=== PATIENT | female | born 1975 | race Caucasian/White ===

== ENCOUNTER 2016-07-30 16:04 | Emergency (ER) | payer OTHER | END 2016-07-30 17:08 | disposition home or self-care (01) | LOC: FER 16:04 | DX: J10.1 Influenza due to other identified influenza virus with other respiratory manifestations (principal); Z88.0 Allergy status to penicillin | CPT/HCPCS: 87804; 87899; 99283 ==

== ENCOUNTER 2022-02-04 17:32 | Emergency (ER) | payer OTHER ==
[2022-02-04] MEDS ORDERED: VIBRAMYCIN100 MG PO (19:45)
[2022-02-04] MEDS ORDERED: KEFLEX250 MG PO (19:45)
[2022-02-04] MEDS ORDERED: DIFLUCAN150 MG PO (19:45)
[2022-02-04 20:31] LABS: BASOPHIL 0.3 % (0-2); EOSINOPHIL 0.6 % (0-5); HCT 37.9 % (37.0-47.0); HGB 12.2 g/dl (12.5-16.0); LYMPHOCYTE 15.7 % (15-48); MCH 27.9 pg (25.0-31.0); MCHC 32.2 g/dL (32.0-36.0); MCV 86.7 fL (78.0-100.0); MONOCYTE 5.1 % (0-12); MPV 9.9 fL (6.0-9.5); NEUTROPHIL 77.9 % (41-80); NRBC 0; PLT 313 K/uL (150-400); RBC 4.37 M/uL (4.20-5.40); RDW 14.5 % (11.5-14.0); WBC 16.8 K/uL (4.0-10.5)
[2022-02-04 21:20] LABS: ALBUMIN 3.7 g/dL (3.4-5.0); ALKALINE PHOSHATASE 43 U/L (46-116); ALT 16 U/L (14-59); AST 11 U/L (15-37); BILIRUBIN - TOTAL 0.4 mg/dL (0.2-1.0); BUN 16 mg/dL (7-18); BUN/CREAT RATIO (CALC) 21.1 RATIO; CHLORIDE 101 mmol/L (98-107); CO2 (BICARBONATE) 27 mmol/L (21-32); CREATININE 0.76 mg/dL (0.51-0.95); GLOBULIN (CALCULATION) 4.5 g/dL; GLUCOSE 119 mg/dL (74-106); POTASSIUM 4.1 mmol/L (3.5-5.1); TOTAL PROTEIN 8.2 g/dL (6.4-8.2)
[2022-02-04 21:26] LABS: C-REACTIVE PROTEIN > 18.00 mg/dL (<=0.90)
== END 2022-02-04 23:07 | disposition home or self-care (01) ==
LOC: FER 17:32
PROVIDERS: Emergency Medicine
DX: E11.621 Type 2 diabetes mellitus with foot ulcer (principal); L97.419 Non-pressure chronic ulcer of right heel and midfoot with unspecified severity; F17.200 Nicotine dependence, unspecified, uncomplicated; Z88.2 Allergy status to sulfonamides; Z88.1 Allergy status to other antibiotic agents; Z88.5 Allergy status to narcotic agent; Z88.8 Allergy status to other drugs, medicaments and biological substances
CPT/HCPCS: 36415; 73630; 80053; 84484; 85025; 86140; 87070; 87205